=== PATIENT | male | born 1985 | race Caucasian/White ===

== ENCOUNTER 2024-12-31 05:04 | Emergency (ER) | payer OTHER ==
[2024-12-31] MEDS: Iopamidol 612 MG/ML 100 ML Bottle IVPUSH ONE (05:19)
[2024-12-31] MEDS: Ondansetron 4 MG/2 ML SDV IVPUSH ONE (05:44)
[2024-12-31] MEDS: Famotidine 20 MG/2 ML SDV IVPUSH ONE (05:45)
[2024-12-31] MEDS: Sodium Chloride 0.9% 1,000 ML IV ONE (05:45)
[2024-12-31 05:50] LABS: BASOPHILS PERCENT AUTO 0.3 % (0.0-1.0); EOSINOPHILS PERCENT AUTO 1.6 % (1.0-3.0); HEMOGLOBIN 14.9 g/dL (14.0-18.0); LYMPHOCYTES PERCENT AUTO 14.2 % (20.5-50.1); MEAN CORPUSCULAR HGB CONC 32.4 g/dL (33.0-35.0); MEAN CORPUSCULAR VOLUME 80.4 fL (80-100); MONOCYTES PERCENT AUTO 6.1 % (2-8); NEUTROPHILS PERCENT AUTO 77.8 % (42.2-75.2); PLATELET COUNT,PLT 318 10^3/uL (150-450); RED BLOOD CELL COUNT 5.72 10^6/uL (4.6-6.2); WHITE BLOOD CELL COUNT,WBC 15.2 10^3/uL (5.0-10.0)
[2024-12-31 06:14] LABS: A/G RATIO 0.8; ALANINE AMINOTRANSFERASE,ALT 111 U/L (16-63); ALBUMIN 3.5 g/dL (3.4-5.0); ALKALINE PHOSPHATASE 90 U/L (46-116); ANION GAP 17.1 mEq/L (7-13); ASPARTATE AMNIOTRANSFERASE,AST 39 U/L (15-37); BILIRUBIN TOTAL 0.5 mg/dL (0.2-1.0); BLOOD UREA NITROGEN,BUN 18 mg/dL (7-18); BUN/CREATININE RATIO 14.1 (No establ ref range); CALCIUM 9.5 mg/dL (8.5-10.1); CARBON DIOXIDE,CO2 27 mmol/L (21-32); CHLORIDE,CL 103 mmol/L (98-107); CREATININE 1.28 mg/dL (0.70-1.30); GLUCOSE RANDOM 141 mg/dL (70-99); LIPASE 32 U/L (16-77); MAGNESIUM 1.8 mg/dL (1.8-2.4); POTASSIUM,K 4.1 mmol/L (3.5-5.1); SODIUM,NA 143 mmol/L (136-145)
[2024-12-31 06:17] LABS: ESTIMATED GFR 73 mL/min (>=60); ETHANOL BLOOD MEDICAL < 3 mg/dL (0)
[2024-12-31 07:59] LABS: LACTIC ACID 1.4 mmol/L (0.4-2.0)
[2024-12-31 12:00] VITALS: BP 117/73; PULSE 70
== END 2024-12-31 12:02 | disposition home or self-care (01) ==
LOC: DL.ED 05:04
DX: R11.2 Nausea with vomiting, unspecified (principal); R19.7 Diarrhea, unspecified; F17.290 Nicotine dependence, other tobacco product, uncomplicated
CPT/HCPCS: 36415; 74177; 80053; 80307; 83605; 83690; 83735; 84484; 85025; 93005; 93010; 96361; 96374; 96375; 99283; 99284-25; J2405; J7030; Q9967

== ENCOUNTER 2025-06-16 06:45 | Day surgery (SDC) | payer OTHER ==
[~2025-06-16 06:45] MED LIST: Propofol 200 MG/20 ML SDV ONE
[2025-06-16] MEDS ORDERED: Propofol 200 MG/20 ML SDV IV ONE (06:46)
[2025-06-16] MEDS ORDERED: Lactated Ringers 1,000 ML IV ONE (06:46)
[2025-06-16] MEDS: Lactated Ringers 1,000 ML IV SCH (07:23)
[2025-06-16 09:53] VITALS: BP 128/80; PULSE 70
== END 2025-06-16 10:00 | disposition home or self-care (01) ==
LOC: DL.ENDO 06:45
PROVIDERS: ATTEND Internal Medicine Gastroenterology
DX: K29.50 Unspecified chronic gastritis without bleeding (principal); K21.9 Gastro-esophageal reflux disease without esophagitis; I10 Essential (primary) hypertension; E66.09 Other obesity due to excess calories; Z68.42 Body mass index [BMI] 45.0-49.9, adult; Z79.899 Other long term (current) drug therapy
CPT/HCPCS: 00731; 43239; J7120; J2003; J2704; S5010

== ENCOUNTER 2025-06-20 06:40 | Day surgery (SDC) | payer OTHER ==
[2025-06-20] MEDS: Lactated Ringers 1,000 ML IV SCH (07:15)
[2025-06-20 09:47] VITALS: BP 115/70; PULSE 64
== END 2025-06-20 09:40 | disposition home or self-care (01) ==
LOC: DL.ENDO 06:40
PROVIDERS: ATTEND Internal Medicine Gastroenterology
DX: Z12.11 Encounter for screening for malignant neoplasm of colon (principal); K64.8 Other hemorrhoids; K21.9 Gastro-esophageal reflux disease without esophagitis; E66.09 Other obesity due to excess calories; Z80.0 Family history of malignant neoplasm of digestive organs; Z79.899 Other long term (current) drug therapy
CPT/HCPCS: J7120